=== PATIENT | male | born 2000 | race Two or more races ===

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

== ENCOUNTER 2021-02-09 09:53 | Emergency (ER) | payer BC, OTHER ==
[~2021-02-09] VITALS: Ht 167.6 cm; Wt 57.2 kg
--- NOTE | 2021-02-09 10:44 | NUR ---
PT PRESENTS TO ED WITH C/O FEVER, BODY ACHES, AND SORE THROAT SINCE YESTERDAY. PT STATES THEY WERE SICK LIKE THIS 2 WEEKS AGO BUT RESOLVED WITH OTC MEDICATION. PT A&O, RESPS EVEN AND UNLABORED, VSS, JAYNEN. WARM BLANKET PROVIDED, CALL LIGHT IN REACH, FRIEND AT BEDSIDE.
--- NOTE | 2021-02-09 11:10 | NUR ---
ERPA AT BEDSIDE FOR INITIAL ASSESSMENT/EVAL
[2021-02-09] MEDS ORDERED: DEXAMETHASONE 4 MG TABLET PO ONE (11:30)
[2021-02-09] MEDS ORDERED: DEXAMETHASONE 4 MG TABLET ONE (12:01)
[2021-02-09 12:47] VITALS: BP 114/77
--- NOTE | 2021-02-09 12:48 | NUR ---
PT GIVEN DC INSTRUCTIONS AND SCRIPT, EDUCATED REGARDING RX FOR MAGIC MOUTHWASH. PT A&O, RESPS EVEN AND UNLABORED, NADN. PT EDUCATED REGARDING ISOLATION PRECAUTIONS WITH PENDING COVID TEST. PT AMBULATORY TO DC DESK WITH STEADY GAIT, ALL QUESTIONS ANSWERED.
== END 2021-02-09 12:49 | disposition home or self-care (01) ==
LOC: ED 12:02
DX: U07.1 COVID-19 (principal); J02.8 Acute pharyngitis due to other specified organisms; R50.9 Fever, unspecified; B97.89 Other viral agents as the cause of diseases classified elsewhere; R59.0 Localized enlarged lymph nodes
CPT/HCPCS: 87081; 87880; 99283; U0003; U0005